=== PATIENT | male | born 1955 | race Caucasian/White ===

== ENCOUNTER 2022-10-19 05:34 | Day surgery (SDC) | payer MEDICARE, BC ==
[~2022-10-19] VITALS: Ht 177.8 cm; Wt 75.0 kg
[~2022-10-19 05:34] MED LIST: NO HOME MEDS; ceFAZolin inj. 2,000 MG in dextrose 5%-water 100 ML IV ONE; famotidine 20mg tablet PO ONE; ringers solution, lacted 1,000 ML IV SCH
[2022-10-19] MEDS ORDERED: BUPIVAcaine 0.5% inj/PF 30 ML ONE (06:34)
[2022-10-19 06:47] VITALS: BP 125/73
[2022-10-19 06:48] VITALS: BP 125/73
[2022-10-19] MEDS ORDERED: LIDOcaine 0.5% (5mg/ml) 50ml vial ONE (07:19)
[2022-10-19] MEDS ORDERED: proCHLORperazine 10 MG/2 ml inj IV PRN (07:20)
[2022-10-19] MEDS ORDERED: ringers solution, lacted 1,000 ML IV SCH (07:20)
[2022-10-19] MEDS ORDERED: morphine 2 MG/ML inj. syringe IV PRN (07:20)
[2022-10-19] MEDS ORDERED: meperidine/PF 25mg/ml syringe IV PRN ×3 (07:20)
[2022-10-19] MEDS ORDERED: ondansetron/PF 4mg/2ml inj IV PRN (07:20)
[2022-10-19] MEDS ORDERED: morphine 4 MG/ML inj SYRINge IV PRN (07:20)
[2022-10-19 07:32] LABS: ALANINE AMINOTRANSFERASE 24 U/L (12-78); ALBUMIN 3.9 G/DL (3.4-5.0); ALBUMIN/GLOBULIN RATIO 1.2 (1.1-1.5); ALKALINE PHOSPHATASE 91 IU/L (46-116); ANION GAP 1 (8-16); ASPARTATE AMINO TRANSFERASE 27 U/L (10-37); BILIRUBIN,TOTAL 0.9 MG/DL (0.1-1.0); BLOOD UREA NITROGEN 14 MG/DL (7-18); BUN/CREATININE RATIO 15.7 (5.4-32.0); CALCIUM 9.2 MG/DL (8.5-10.1); CHLORIDE 109 MMOL/L (99-107); CREATININE 0.89 MG/DL (0.60-1.10); GLUCOSE 106 MG/DL (70-104); LYMPHOCYTES # (AUTO) 1.3 X10'3 (1.1-4.8); MEAN PLATELET VOLUME 7.4 FL (7.4-10.4); MONOCYTES # (AUTO) 0.5 X10'3 (0-0.9); SODIUM 141 MMOL/L (135-145); TOTAL CARBON DIOXIDE 31.4 MMOL/L (24-32); TOTAL PROTEIN 7.1 G/DL (6.4-8.2); eGFR 86 ML/MIN
[2022-10-19 07:34] LABS: BASOPHILS % (AUTO) 0.9 % (0-1); EOSINOPHILS # (AUTO) 0.2 X10'3 (0-0.9); EOSINOPHILS % (AUTO) 3.6 % (0-6); HEMATOCRIT 42.9 % (42.0-52.0); HEMOGLOBIN 14.1 g/dl (14.0-17.9); LYMPHOCYTES % (AUTO) 29.8 % (21-51); MEAN CORPUSCULAR HEMOGLOBIN 29.4 PG (27.0-31.0); MEAN CORPUSCULAR HGB CONC 32.8 g/dL (33.0-36.5); MEAN CORPUSCULAR VOLUME 89.6 FL (78-98); MONOCYTES % (AUTO) 11.4 % (2-12); NEUTROPHILS # (AUTO) 2.4 X10'3 (1.8-7.7); NEUTROPHILS % (AUTO) 54.3 % (42-75); PLATELET COUNT 328 X10'3 (140-440); RED BLOOD COUNT 4.79 X10'6 (4.70-6.10); RED CELL DISTRIBUTION WIDTH 13.6 % (11.5-14.5); WHITE BLOOD COUNT 4.4 X10'3 (4.5-11.0)
[2022-10-19 07:36] LABS: POTASSIUM 4.9 MMOL/L (3.5-5.1)
[2022-10-19] MEDS ORDERED: BUPIVAcaine 0.5% inj/PF 30 ml vial IJ ONE (07:46)
[2022-10-19] MEDS ORDERED: hydrALAZINE 20mg/ml inj. IV ONE (07:52)
[2022-10-19 07:57] VITALS: BP 167/67
--- NOTE | 2022-10-19 07:57 | NUR ---
Received from OR via [facility], accompanied by Anesthesiologist DR STEVENSON and report given by Anesthesiolgist. PT PRESENTS WITH 20G LEFT FOREARM, RIGHT HAND DRESSING CDI, VSS. Addendum: 10/19/22 at 0843 by Yari Nunez RN, RN Amended: Links added.
[2022-10-19 08:10] VITALS: BP 150/84
[2022-10-19 08:20] VITALS: BP 148/80
[2022-10-19 08:37] VITALS: BP 148/80
--- NOTE | 2022-10-19 08:37 | NUR ---
ALL DISCHARGE CRITERIA HAS BEEN MET. VSS, PAIN AT A TOLERABLE LEVEL, VOIDING AND ABLE TO SAFELY AMBULATE AND TRANSFER SELF. IV TAKEN OUT WITHOUT ANY COMPLICATIONS. ALL DISCHARGE INSTRUCTIONS COVERED WITH PATIENT AND ALL QUESTIONS ANSWERED. PATIENT TAKEN OUT VIA WHEELCHAIR TO PERSONAL VEHICLE WHERE FAMILY/FRIEND DROVE PATIENT HOME. Addendum: 10/19/22 at 0843 by Yari Nunez RN, RN Amended: Links added.
== END 2022-10-19 08:37 | disposition home or self-care (01) ==
LOC: PAS 05:34
PROVIDERS: ATTEND Orthopaedic Surgery Hand Surgery
DX: M67.441 Ganglion, right hand (principal); Z90.49 Acquired absence of other specified parts of digestive tract; Z79.899 Other long term (current) drug therapy
CPT/HCPCS: 26160; 36415; 80053; 82948; 85025; 93005; J0360; J0690; J3490; J7030; J7060; J7120; S0020; Z7506; Z7512; A4215; A4618; A6449; A7000

== ENCOUNTER 2025-01-05 06:09 | Day surgery (SDC) | payer MEDICARE, BC ==
[2025-01-05] VITALS (22 sets, daily range): BP systolic 102–136; BP diastolic 52–83; PULSE 58–76; RESP 10–19; TEMP 98.6; O2SAT 95–100
[~2025-01-05] VITALS: Ht 177.8 cm; Wt 72.8 kg
[2025-01-05] MEDS: clindamycin-Cleocin 900mg/D5W 50 ML IV ONE (05:30)
[~2025-01-05 06:09] MED LIST changes: +ANTACID; -NO HOME MEDS; -ceFAZolin inj. 2,000 MG in dextrose 5%-water 100 ML IV ONE; -famotidine 20mg tablet PO ONE; -ringers solution, lacted 1,000 ML IV SCH
[2025-01-05] MEDS ORDERED: LIDOcaine 1% 30ml preserv. free vial ONE (06:50)
[2025-01-05] MEDS ORDERED: BUPIVAcaine 2.5mg/ml inj 50ml vial (contains preservative) ONE (06:51)
--- NOTE | 2025-01-05 06:59 | ELECTROCARDIOGRAPH REPORT ---
[facility] Test Date: 2025-01-05 Test Time: 06:57:14 Pat Name: KARISHMA COLEY Department: [facility] Patient ID: [id number] Room: [facility] Gender: M Rehab Rn: PEYMAN : 1955 Requested By: SOSA WHIPPLE Order Number: [id number] Reading MD: Dr. BANDAR Hanson Measurements Intervals [place] Rate: 63 P: -16 NC: 143 QRS: -11 QRSD: 89 T: 50 QT: 386 QTc: 396 Interpretive Statements Sinus rhythm Atrial premature complexes Borderline low voltage, extremity leads Electronically Signed On 01-05-2025 18:33:[address] BANDAR Hanson Please click the below link to view image of tracing.
[2025-01-05] MEDS: famotidine 20mg tablet PO ONE (07:14)
[2025-01-05] MEDS: ringers solution, lacted 1,000 ML IV SCH ×2 (07:14→10:35)
[2025-01-05 07:19] LABS: BASOPHILS % (AUTO) 0.4 % (0-1); EOSINOPHILS # (AUTO) 0.1 X10'3 (0-0.9); EOSINOPHILS % (AUTO) 0.7 % (0-6); HEMATOCRIT 42.8 % (42.0-52.0); HEMOGLOBIN 14.2 g/dl (14.0-17.9); LYMPHOCYTES # (AUTO) 1.3 X10'3 (1.1-4.8); LYMPHOCYTES % (AUTO) 18.2 % (21-51); MEAN CORPUSCULAR HEMOGLOBIN 29.3 PG (27.0-31.0); MEAN CORPUSCULAR HGB CONC 33.2 g/dL (33.0-36.5); MEAN CORPUSCULAR VOLUME 88.1 FL (78-98); MONOCYTES % (AUTO) 14.7 % (2-12); NEUTROPHILS # (AUTO) 4.6 X10'3 (1.8-7.7); PLATELET COUNT 281 X10'3 (140-440); RED BLOOD COUNT 4.86 X10'6 (4.70-6.10); RED CELL DISTRIBUTION WIDTH 13.4 % (11.5-14.5); WHITE BLOOD COUNT 6.9 X10'3 (4.5-11.0)
[2025-01-05 07:37] LABS: ALBUMIN 3.7 G/DL (3.4-5.0); ALBUMIN/GLOBULIN RATIO 1.2 (1.1-1.5); ALKALINE PHOSPHATASE 98 IU/L (46-116); BLOOD UREA NITROGEN 10 MG/DL (7-18); BUN/CREATININE RATIO 13.9 (10.0-20.0); CALCIUM 8.9 MG/DL (8.5-10.1); CHLORIDE 105 MMOL/L (99-107); CREATININE 0.72 MG/DL (0.60-1.10); PRE OP ALT 25 U/L (30-65); PRE OP ANION GAP 10 (8-16); PRE OP AST 21 U/L (10-37); PRE OP GLUCOSE 102 MG/DL (70-104); PRE OP POTASSIUM 3.7 MMOL/L (3.4-5.1); PRE OP SODIUM 140 MMOL/L (135-145); TOTAL CARBON DIOXIDE 25.4 MMOL/L (24-32); TOTAL PROTEIN 6.8 G/DL (6.4-8.2); eCRCL 102 ML/MIN; eGFR > 90 ML/MIN
[2025-01-05] MEDS ORDERED: fentaNYL/PF 50MCG/1 ML 2ML syringe ONE (07:54)
[2025-01-05] MEDS ORDERED: midazolam 1 mg/ML 2ml injection ONE (07:55)
[2025-01-05] MEDS ORDERED: propofol inj 20 ML IV ONE (07:55)
[2025-01-05] MEDS ORDERED: rocuronium 10mg/ml inj IV ONE (07:55)
[2025-01-05] MEDS ORDERED: sevoflurane 250ml liquid IH ONE (08:09)
--- NOTE | 2025-01-05 08:17 | HISTORY AND PHYSICAL ---
History & Physical Providers to CC CC: EVARISTO COLLADO MD ~ History of Present Illness Reason for Admit\Complaint: Paraesophageal hernia, symptomatic perianal skin tags History of Present Illness Interval history and physical exam Patient was evaluated and consultation provided via telephone appointment He has endoscopically and radiographically documented paraesophageal hernia with active and visible reflux Patient also has symptomatic perianal skin tags that are causing irritation and difficulty with perianal hygiene He is scheduled for robotic assisted, laparoscopic paraesophageal hernia repair with mesh and excision of perianal skin tags Otherwise, no change in his past medical history since he was evaluated about a month ago. Allergies: Coded Allergies: Penicillins (Verified Allergy, Unknown, 01/04/25) Home Medications Home Medications Active Reported [Antacid] Exam General: 69-year-old male in no acute distress Chest: Lungs clear to auscultation bilaterally Cardiovascular: Regular rate and rhythm without murmurs Abdomen: Soft and nondistended Diagnostic Data Last Recorded Lab Results: 01/05/25 0700 01/05/25 0700 Problems: (1) Skin tag of perianal region (2) Paraesophageal hernia Additional Plan The risks, benefits, and alternatives to a robotic assisted, laparoscopic paraesophageal hernia repair with mesh, and removal of perianal skin tags was discussed with the patient. Risks include, but are not limited to, bleeding, infection, injury to intra-abdominal structures, trouble swallowing and the need for additional surgical procedures. Chronic postoperative pain, while unlikely, was also discussed. Regarding the perianal skin tags, there was always a potential for bleeding and infection and in rare cases perianal stricture. Patient verbalized understanding we will proceed with the above surgery today as scheduled SOSA WHIPPLE MD Jan 05, 2025 08:17
[2025-01-05] MEDS: BUPIVAcaine/PF 2.5 mg/ml (0.25%) 30ml vial IJ ONE (09:08)
[2025-01-05] MEDS ORDERED: dexamethasone sod phosphate 4mg/ml inj. ONE (10:02)
[2025-01-05] MEDS ORDERED: acetaminophen 1,000mg/100ml IV 100 ML IV ONE (10:02)
[2025-01-05] MEDS ORDERED: ondansetron/PF 4mg/2ml inj ONE (10:16)
[2025-01-05] MEDS ORDERED: sugammadex 200mg/2ml injection IV ONE (10:16)
[2025-01-05] MEDS ORDERED: HYDROmorphone/PF 0.2 MG/ML SYRINGE IV PRN ×2 (10:35)
[2025-01-05] MEDS ORDERED: labetalol 20mg/4ml (5mg/ml) syringe IV PRN (10:35)
[2025-01-05] MEDS ORDERED: meperidine/PF 25mg/ml syringe IV PRN (10:35)
[2025-01-05] MEDS ORDERED: morphine 2 MG/ML inj. syringe IV PRN (10:35)
[2025-01-05] MEDS: morphine 4 MG/ML inj SYRINge IV PRN (11:24)
[2025-01-05] MEDS ORDERED: ondansetron/PF 4mg/2ml inj IV PRN (11:40)
[2025-01-05] MEDS ORDERED: HYDROmorph/NS 0.2 mg/ml PCA 100 ML IV SCH ×2 (11:40→11:47)
[2025-01-05] MEDS ORDERED: potassium CL 20mEq in D5-1/2NS 1,000 ML IV SCH (11:40)
[2025-01-05] MEDS ORDERED: naloxone 0.4 mg/ml inj IV PRN (11:40)
[2025-01-05] MEDS ORDERED: normal saline 1000ml 1,000 ML IV SCH (11:40)
[2025-01-05] MEDS: ondansetron/PF 4mg/2ml inj IV PRN (12:10)
--- NOTE | 2025-01-05 12:11 | RADIOLOGY REPORT ---
EXAM: DI CHEST,SINGLE VIEW Indication: POST OP Technique: Single frontal view of the chest was obtained Comparison: None FINDINGS: Lines and Tubes: None Lungs: No focal consolidation. Pleura: No effusion. No pneumothorax. Cardiomediastinal contours: Unremarkable. Suggestion of pneumoperitoneum. Bones: No acute osseous abnormality. IMPRESSION: No acute cardiopulmonary disease. Suggestion of pneumoperitoneum which is likely postsurgical given c linical history.
--- NOTE | 2025-01-05 15:05 | DISCHARGE SUMMARY ---
Discharge Summary Providers to CC CC: AMANDO WHIPPLE MD ~ Discharge Summary Admission Diagnosis: Paraesophageal hernia Hospital Course DATE OF ADMISSION: January 05, 2025 DATE OF DISCHARGE: January 05, 2025 Discharge Diagnosis\Comment: Paraesophageal hernia Perianal skin tag Operations\Procedures: Robotic assisted, laparoscopic paraesophageal hernia repair with mesh Excision of perianal skin tag-multiple Consultants: Amando Whipple MD FACS Complications: None Condition on DC: Stable New Medications: Oxycodone Hcl/Acetaminophen 5/325 MG* (Percocet 5/325 MG*) 5 Mg/325 Mg Tablet 1 TAB PO Q4H PRN for moderate or severe pain 4-10 for 5 Days, #30 TAB Discontinued Medications: [Antacid] () Discharge Summary: Plan was for admission to observation overnight for pain control, however, patient did not require any additional IV narcotic medication and had no dysphagia or nausea and was deemed ready for discharge from the recovery room. Chest x-ray did not reveal any pneumothorax or cardiopulmonary disease of concern. *Problems/Diagnosis: (1) Skin tag of perianal region (2) Paraesophageal hernia Total Time Spent on D/C: Up to 30 Minutes Counseling Services Smoking & Tobacco Cessation: N/A AMANDO WHIPPLE MD Jan 05, 2025 15:05
--- NOTE | 2025-01-05 15:11 | POSTOPERATIVE RECORDS ---
Postoperative Records Providers to CC ~ Date of Procedure: Jan 05, 2025 Problems: (1) Paraesophageal hernia (2) Skin tag of perianal region Post-Operative Diagnosis SAME as PRE-Op Procedure Performed Robotic assisted, laparoscopic paraesophageal hernia repair with mesh Excision of perianal skin tag Surgeon: Amando Whipple MD FACS Aircraft Refueller None Anesthesiologist: Ari Kaminski Findings: Type 1 paraesophageal hernia Multiple perianal skin tags Complications None Estimated Blood Loss: Minimal Specimen Removed: GE fat pad and hernia sac Perianal skin tag x3 AMANDO WHIPPLE MD Jan 05, 2025 15:11
[2025-01-05] MEDS: oxyCODONE/APAP 5-325mg tablet PO PRN (15:12)
[2025-01-05] MEDS: ondansetron 4mg rapidly disintigrating tab PO ONE (16:20)
[2025-01-05] MEDS ORDERED: heparin, porcine 5000 units/ml vial SQ SCH (20:00)
--- NOTE | 2025-01-06 19:12 | OPERATIVE REPORT ---
Operative Report Providers to CC CC: AMANDO WHIPPLE MD ~ Date of Procedure: Jan 05, 2025 Pre-Operative Diagnosis: Paraesophageal hernia, perianal skin tags Post-Operative Diagnosis SAME as PRE-Op Procedure Performed Robotic assisted, laparoscopic paraesophageal hernia repair with mesh Excision of perianal skin tags Surgeon: Amando Whipple MD FACS Band Head Saw Operator None Anesthesiologist: Ari Kaminski Type of Anesthesia: General Findings: Type 1 paraesophageal (sliding hiatal) hernia Benign appearing, three quadrant perianal skin tags Wound Class I Complications None Prosthetics\Implants used: Phasix mesh Estimated Blood Loss: Minimal Specimen Removed: Left lateral, right anterior and right posterior perianal skin tags Description of Procedure: Patient was brought to the operating room and identified by the nursing staff and the attending physician. Patient was placed supine and general anesthesia was induced. Preoperative antibiotics were given. Garcia catheter was placed. The abdomen was prepped and draped in the standard sterile fashion. At Modi's point, Veress needle technique was used through a stab incision to access and insufflate the abdomen. This was accomplished without incident. An optical, 12 mm trocar was used to gain access to the abdomen in the left upper quadrant under laparoscopic visualization. Additional 8.5 mm robotic trochars were placed under laparoscopic visualization in the left lateral upper abdomen, left epigastrium and right upper quadrant. Patient was placed in steep, reverse Trendelenburg position. The da Eugenia robotic arm was docked to the patient and instruments guided into the abdomen under laparoscopic visualization. The left lobe of the liver was lifted and the hiatus inspected. Moderate-sized hiatal defect was noted. This appeared to be the sliding type. GE junction was at the hiatus. An 18 inch, 0, V-Loc suture was used to sling the left lobe of the liver up to the anterior abdominal wall. With the stomach retracted towards the patient's left upper quadrant, dissection was initiated along the pars flaccida and the lesser sac was entered. The lesser omentum was divided up to the right radha. There was not a replaced left hepatic artery. Dissection was carried in to the mediastinum. The mediastinal space was entered. Dissection was then carried posteriorly along the right radha, taking care to leave peritoneum overlying the muscles. Once the posterior decussation was encountered, attention was then turned to the short gastric vessels. Stomach was retracted toward the patient's right and the short gastric vessels were placed on tension. The short gastric vessels were divided along the upper portion of the greater curvature, up to the phrenoesophageal ligament which was also then divided. The peritoneal reflection of the left radha was opened and dissection carried up until the apex of the crura was reached. Dissection was carried up into the mediastinum, mobilizing the esophagus from the retrocardiac space and taking care not to injure the bilateral pleura. The entire hernia sac which was really rather small in size, was mobilized out of the mediastinum and reduced into the abdomen. Excess sac was dissected at the level of the gastroesophageal fat pad and set aside. The retroesophageal space was developed. The GE junction was retracted anteriorly and the mediastinal dissection was carried out posterior to the esophagus. Dissection continued until at least 3 cm of intra-abdominal esophagus was obtained without any retraction on the stomach. With the stomach retracted anteriorly, adequate space and visualization was obtained to allow for the crural repair. Strips of bioabsorbable, Phasix mesh were used to reinforce the crural repair. A strip of mesh was placed over each crura and used for reap proximation without tension. Attention was then turned to the gastropexy. Fundus was anchored to the upper left portion of the hiatus with full-thickness crural sutures. The suture was then run along the greater curvature creating a gastropexy to the anterior abdominal wall. Care was taken to stay medial to the terminal branches of the phrenic nerve and vascular bundle. About a fourth of the gastric fundus was anchored to the anterior abdominal wall. Attention was then turned to the modified Hill procedure/augmentation stitch. The angle of His was then recreated with a running, 2/0, absorbable V-Loc suture. This was run between the fundus and the lateral border of the intra-abdominal esophagus. This suture was run up to the level of the left radha. Gastropexy was then completed by running the midportion of the gastric fundus towards the initial gastropexy suture and anchoring the 2 together. [place] and sutures were retrieved. The da Eugenia robotic arm was undocked from the patient. The 12 mm port was removed and the fascial defect closed percutaneously with 0 Vicryl suture. Remaining ports were removed and the abdomen was allowed to deflate. Skin was closed at all sites with 4-0 Monocryl sutures and dressed with sterile dressings. Patient was then placed in lithotomy position. The perianal area was prepped with Betadine solution. There were three visible areas of redundant perianal skin consistent with a likely history of previously thrombosed external hemorrhoids. There were skin tags in the left lateral, right anterior and right posterior areas. Local anesthetic was infiltrated into each of the three areas and bilateral pudendal nerve blocks were placed using anatomical landmarks. Each of the skin tags were then completely ellipse and removed. Care was taken to leave adequate anoderm in between each of the excision sites. Hemostasis was assured. The area was packed with a piece of Surgicel gauze, sterile dressings and mesh underpants. Patient was extubated and transferred to the postanesthesia care unit in stable condition. Counts repoted as correct: Yes AMANDO WHIPPLE MD Jan 06, 2025 19:12
== END 2025-01-05 16:49 | disposition home or self-care (01) ==
LOC: PAS 06:09 → PAS IN 11:45 → UNDOADMOB 11:45
PROVIDERS: ATTEND Surgery
DX: K44.9 Diaphragmatic hernia without obstruction or gangrene (principal); K64.4 Residual hemorrhoidal skin tags; Z79.899 Other long term (current) drug therapy; Z90.49 Acquired absence of other specified parts of digestive tract; Z98.890 Other specified postprocedural states; L21.9 Seborrheic dermatitis, unspecified; Z88.8 Allergy status to other drugs, medicaments and biological substances; Z88.0 Allergy status to penicillin
CPT/HCPCS: 36415; 43282; 46230; 71045; 80053; 82948; 85025; 86885; 86900; 86901; 88304; 93005; A4215; A4618; A6253; A6402; A7000; C1781; J0131; J1100; J2003; J2250; J2270; J2405; J2704; J3010; J3490; J7030; J7120; Z7506; Z7508; Z7512; Z7610; A6449